=== PATIENT | male | born 1980 | race Caucasian/White ===

== ENCOUNTER 2017-09-01 20:00 | Emergency (ER) | payer MEDICAID ==
[~2017-09-01] VITALS: Ht 177.8 cm; Wt 185.0 kg
[~2017-09-01 20:00] MED LIST: NOCURR
[2017-09-01 20:36] VITALS: BP 130/80
== END 2017-09-01 21:30 | disposition left against medical advice (07) ==
LOC: EMS 20:01
DX: R42 Dizziness and giddiness (principal); Z53.21 Procedure and treatment not carried out due to patient leaving prior to being seen by health care provider